=== PATIENT | female | born 1970 | race Caucasian/White ===

== ENCOUNTER 2016-12-08 17:39 | Observation (INO) ==
[2016-12-08] MEDS ORDERED: TYLENOL PO PRN (18:37)
[2016-12-08] MEDS ORDERED: NS 1,000 ML IV SCH (18:37)
[2016-12-08] MEDS ORDERED: KLONOPIN PO PRN (18:38)
[2016-12-08] MEDS ORDERED: SEROQUEL PO PRN (18:38)
[2016-12-08] MEDS ORDERED: APRESOLINE IV PRN (18:39)
[2016-12-08] MEDS: NORCO-5 PO PRN ×2 (19:24→23:47)
[2016-12-08 19:42] LABS: HEMATOCRIT 37.1 % (37.0-47.0); HEMOGLOBIN 12.5 g/dL (12.0-16.0); MCHC 33.7 g/dL (33-37); MCV 86.1 FL (81-99); MPV 9.7 FL (7.4-10.4); RBC 4.31 XMIL (4.2-5.4)
[2016-12-08] MEDS: NORVASC PO SCH (20:43)
[2016-12-08] MEDS: COZAAR PO SCH (20:43)
[2016-12-08] MEDS: ZOFRAN IV PRN (21:00)
[2016-12-08 21:20] LABS: AGAP 17; ALBUMIN 4.1 g/dL (3.5-5.0); ALKALINE PHOSPHATASE 77 U/L (32-104); BUN 6 mg/dL (8-22); CALCIUM 8.7 mg/dL (8.8-10.2); CHLORIDE 101 mmol/L (98-107); COSMO 269; GOT 16 U/L (10-30); GPT 13 U/L (10-36); POTASSIUM 4.2 mmol/L (3.5-5.1); SODIUM 136 mmol/L (136-145); TCO2 18 mmol/L (25-35); TOTAL BILIRUBIN < 0.15 mg/dL (0.20-1.00); TOTAL PROTEIN 6.5 g/dL (6.3-8.3)
[2016-12-08] MEDS ORDERED: SODIUM CHLORIDE 0.9% INJ PRN (23:39)
[2016-12-08] MEDS ORDERED: SALINE LOCK IV FLUID XX ONE (23:39)
[2016-12-08] MEDS: PHENERGAN IV PRN (23:49)
[2016-12-09] MEDS: PHENERGAN IV PRN ×2 (03:24→16:27)
[2016-12-09 06:43] LABS: HEMATOCRIT 35.6 % (37.0-47.0); HEMOGLOBIN 11.6 g/dL (12.0-16.0); MCH 27.9 PG (27-31); MCHC 32.6 g/dL (33-37); MCV 85.6 FL (81-99); MPV 9.5 FL (7.4-10.4); RBC 4.16 XMIL (4.2-5.4)
[2016-12-09 07:08] LABS: AGAP 8; ALBUMIN 3.5 g/dL (3.5-5.0); ALKALINE PHOSPHATASE 67 U/L (32-104); BUN 7 mg/dL (8-22); CALCIUM 8.4 mg/dL (8.8-10.2); CHLORIDE 105 mmol/L (98-107); COSMO 277; GOT 11 U/L (10-30); GPT 12 U/L (10-36); POTASSIUM 3.4 mmol/L (3.5-5.1); SODIUM 140 mmol/L (136-145); TCO2 27 mmol/L (25-35); TOTAL PROTEIN 5.9 g/dL (6.3-8.3)
[2016-12-09] MEDS ORDERED: PATIENT'S OWN MED IM SCH (09:00)
[2016-12-09] MEDS ORDERED: PRILOSEC PO SCH (09:00)
[2016-12-09] MEDS ORDERED: HYDROCHLOROTHIAZIDE PO SCH (09:00)
[2016-12-09] MEDS: NORVASC PO SCH (09:31)
[2016-12-09] MEDS: COZAAR PO SCH (09:32)
--- NOTE | 2016-12-09 10:03 | EKG Report ---
Test Performed on : 12/09/2016 09:56:33 AM Test Reason : Chest pain Blood Pressure : / mmHG Vent. Rate : 067 BPM Atrial Rate : 067 BPM P-R Int : 160 ms QRS Dur : 098 ms QT Int : 454 ms P-R-T Axes : 077 035 044 degrees QTc Int : 479 ms Normal sinus rhythm. Moderate voltage criteria for LVH, may be normal variant Borderline ECG When compared with ECG of 12-NOV-2015 12:42, premature ventricular complexes. are no longer present Unconfirmed Result
[2016-12-09] MEDS: ZOFRAN IV PRN (12:35)
[2016-12-09 14:32] VITALS: BP 131/85
--- NOTE | 2016-12-13 14:54 | HISTORY AND PHYSICAL ---
CHIEF COMPLAINT: Generalized weakness. HISTORY OF PRESENT ILLNESS: The patient is a 46-year-old female who presented to the office with chief complaint of generalized weakness and fatigue. States she was having nausea, vomiting, unable to keep down oral liquids. She has a known history of gastric bypass and notes that occasionally this will happen, but this is more severe than usual. The symptoms have been going on for 2 to 3 days. She has felt lightheaded and felt as though she was going to pass out when she stood up. She has not had a complete syncopal episode, but has had near-syncope. PAST MEDICAL HISTORY: 1. Hypertension. 2. Gastric bypass. 3. Chronic anxiety/chronic depression. 4. Migraines. SURGICAL HISTORY: Gastric bypass some years ago. ALLERGIES: No known drug allergies. MEDICATIONS: Reviewed, on chart. SOCIAL HISTORY: Lives at home. She is . She does not smoke. Does not drink. She is employed. She has children that live in the house. FAMILY HISTORY: Noncontributory. REVIEW OF SYSTEMS: As noted above. Positive lightheaded and weakness. States she is having some palpitations when she stands. Denies any chest pain or true syncope. Positive generalized weakness. No focal weakness. She has had nausea and vomiting. Denies any diarrhea. Denies hematochezia, melena, or hematemesis. Denies hemoptysis. OBJECTIVE: Vital Signs: Reviewed. Temperature 98 degrees, pulse 105, respiratory 18, BP 180 to 190 systolic. General: Patient is awake, alert. She is in mild distress. She is in no respiratory distress. HEENT: Normocephalic, atraumatic. RADHA. EOMI. Neck: Supple. Cardiovascular: Regular rate and rhythm. Chest: Clear. Abdomen: Soft. Extremities: Moves all extremities. Neurologic: No changes. ASSESSMENT: 1. Hypertensive urgency. 2. Known hypertension. 3. Nausea and vomiting, with volume depletion. 4. Acute stress reaction. 5. Chronic anxiety and depression. 6. Current headache, likely secondary to stress more than her blood pressure. PLAN: We will admit patient to the hospital. IV fluids. Control her blood pressure. Certainly expect that this is more of a stress reaction that has caused the nausea and vomiting, and prevented her from keeping down her blood pressure medications. We will continue to follow. cc: Lee Espinal MD
--- NOTE | 2016-12-13 19:16 | DISCHARGE SUMMARY ---
ADMISSION DATE: 12/08/2016 DISCHARGE DATE: 12/09/2016 DISCHARGE DIAGNOSES: 1. Hypertensive urgency, resolved. 2. Chest pain, resolved 3. Nausea and vomiting, resolved. 4. Volume depletion, resolved. 5. Acute stress reaction. CONSULTATIONS: None. PROCEDURES: None. BRIEF HOSPITAL COURSE: Patient is a 46-year-old female, who was admitted as noted in HPI. Treated in usual fashion. Placed on her home blood pressure medications, IV fluids, Zofran and Phenergan. She thankfully continued to improve. On discharge, she is awake, alert. She is having no further complications. She is still tired and notes that she has been very stressed and thinks that may be the cause of her current symptoms. Otherwise, she is back to her usual state of health. DISPOSITION: The patient will be discharged home. No changes were made on her blood pressure medications. We will continue to monitor. Further orders as needed. cc: Lee Espinal MD
== END 2016-12-09 19:10 | disposition home or self-care (01) ==
LOC: P.DIRADM 17:39 → INTOOBSV 17:39 → P.MEDSURG 17:41
PROVIDERS: ADMIT Family Medicine; ATTEND Family Medicine